=== PATIENT | male | born 1995 | race Caucasian/White ===

== ENCOUNTER 2019-08-03 22:23 | Emergency (ER) | payer OTHER ==
[2019-08-03] MEDS ORDERED: DIPH/PERTUSS(ACELL)/TETANUS VAC/PF 0.5 ML SYR (>=10YO) IM ONE (23:29)
[2019-08-03] MEDS ORDERED: CLINDAMYCIN HCL 150 MG CAPSULE PO ONE (23:29)
[2019-08-03] MEDS ORDERED: IBUPROFEN 800 MG TABLET PO ONE (23:29)
[2019-08-03] MEDS ORDERED: HYDROCODONE/ACETAMINOPHEN 5-325 MG (6 TAB/ER DISP) PO PRN (23:29)
--- NOTE | 2019-08-04 00:14 | ER Document Report ---
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 Patient states he lost control of the vaccination gun and accidentally shot himself in the hand with a needle. Patient with puncture wound to left hand. Patient states that he did cleanse the wound after it occurred but the pain has gradually started to worsen throughout the day. Associated Symptoms: Other - Left hand pain. denies: Fever Exacerbated by: Movement Relieved by: Denies Similar symptoms previously: No Recently seen / treated by doctor: No - ROS ROS below otherwise negative: Yes Systems Reviewed and Negative: Yes All other systems reviewed and negative - CONSTITUTIONAL Constitutional: DENIES: Fever - NEURO Neurology: DENIES: Weakness - MUSCULOSKELETAL Musculoskeletal: REPORTS: Extremity pain. DENIES: Swelling - DERM Skin Color: Normal Skin Problems: Puncture Wound Past Medical History - General Information source: Patient - Social History Smoking Status: Never Smoker Chew tobacco use (# tins/day): Yes Frequency of alcohol use: None Drug Abuse: None Occupation: [employer] Lives with: Family Family History: Reviewed & Not Pertinent Patient has suicidal ideation: No Patient has homicidal ideation: No - Medical History Medical History: Negative Renal/ Medical History: Denies: Hx Peritoneal Dialysis Past Surgical History: Reports: Other - Eye surgery - Immunizations Hx Diphtheria, Pertussis, Tetanus Vaccination: No Vertical Provider Document - CONSTITUTIONAL Agree With Documented VS: Yes Exam Limitations: No Limitations General Appearance: WD/WN, No Apparent Distress - INFECTION CONTROL TRAVEL OUTSIDE OF THE [place] IN LAST 30 DAYS: No - HEENT HEENT: Atraumatic, Normocephalic - NECK Neck: Normal Inspection - RESPIRATORY Respiratory: Breath Sounds Normal, No Respiratory Distress - CARDIOVASCULAR Cardiovascular: Regular Rate, Regular Rhythm Pulses: Normal: Radial - MUSCULOSKELETAL/EXTREMETIES Musculoskeletal/Extremeties: MAEW, Tender - Tenderness to palmar surface of left second metacarpal with overlying puncture wound, no surrounding erythema or edema. negative: No Edema, Eccymosis - NEURO Level of Consciousness: Awake, Alert, Appropriate Motor/Sensory: No Motor Deficit - DERM Integumentary: Warm, Dry Notes: Puncture wound to palmar surface of left hand Course - Re-evaluation Re-evalutation: 08/03/19 No concern for infection at this time. No erythema or drainage. Patient with no significant tenderness with flexion or extension against resistance. No concern for tenosynovitis at this time. - Vital Signs Vital signs: Temp Pulse Resp BP Pulse Ox 98.1 F 62 19 125/68 100 08/03/19 22:47 08/03/19 22:47 08/03/19 22:47 08/03/19 22:47 08/03/19 22:47 - Diagnostic Test Radiology reviewed: Pending, Image reviewed Discharge - Discharge Clinical Impression: Puncture wound, hand Qualifiers: Encounter type: initial encounter Foreign body presence: without foreign body Laterality: left Qualified Code(s): S61.432A - Puncture wound without foreign body of left hand, initial encounter Condition: Stable Disposition: HOME, SELF-CARE Instructions: Clindamycin ([facility]), Puncture Wound ([facility]) Additional Instructions: Return immediately for any new or worsening symptoms: Fever, redness, drainage, swelling or any concerning symptoms Followup with hand surgeon for any persistent problems Prescriptions: Clindamycin HCl [Cleocin Hcl] 300 mg PO QID #28 capsule Naproxen [Naprosyn 250 Nmg Tablet] 1 tab PO BID #14 tablet Forms: Return to Work Referrals: JESSICA WILKERSON DO [ACTIVE STAFF] - Follow up as needed
[2019-08-04 00:28] VITALS: BP 125/74
--- NOTE | 2019-08-04 00:30 | RADIOLOGY REPORT (SQ) ---
EXAM DESCRIPTION: XR HAND 3 OR MORE VIEWS COMPLETED DATE/TME: 08/03/2019 23:30 CLINICAL HISTORY: 24 years Male, PW to 2nd COMPARISON: None. Findings: Bones, joints, and soft tissues of the LEFT XR HAND 3 OR MORE VIEWS appear intact. IMPRESSION: No acute findings.
== END 2019-08-04 00:28 | disposition home or self-care (01) ==
LOC: ER 22:23
DX: S61.432A Puncture wound without foreign body of left hand, initial encounter (principal); M79.642 Pain in left hand; W46.1XXA Contact with contaminated hypodermic needle, initial encounter
CPT/HCPCS: 90471; 90715; 99283